=== PATIENT | female | born 1955 ===

== ENCOUNTER → 2024-01-05 10:22 | Outpatient (REF) | payer OTHER, SELFPAY | LOC: RAD 10:22 | PROVIDERS: ATTENDING PHYSICIAN Student in an Organized Health Care Education/Training Program; FAMILY PHYSICIAN Family Medicine; PRIMARYCARE PHYSICIAN Internal Medicine | DX: I34.81 Nonrheumatic mitral (valve) annulus calcification (principal); R94.39 Abnormal result of other cardiovascular function study; I49.1 Atrial premature depolarization; I49.3 Ventricular premature depolarization; I47.10 Supraventricular tachycardia, unspecified | CPT/HCPCS: 75574; Q9967 ==